=== PATIENT | male | born 1990 | race Hispanic/Latino ===

== ENCOUNTER 2022-07-12 13:56 | Emergency (ER) | payer SELFPAY ==
[~2022-07-12] VITALS: Ht 167.6 cm; Wt 86.2 kg
[2022-07-12] MEDS ORDERED: BENTYL10 MG/1 ML IV (14:37)
== END 2022-07-12 14:45 | disposition home or self-care (01) ==
LOC: ER 14:08
DX: R33.9 Retention of urine, unspecified (principal); I10 Essential (primary) hypertension; E11.9 Type 2 diabetes mellitus without complications
CPT/HCPCS: 99282